=== PATIENT | male | born 1960 | race Caucasian/White ===

== ENCOUNTER 2021-07-10 13:33 | Emergency (ER) | payer BC, SELFPAY ==
[2021-07-10 14:02] VITALS: BP 146/72; PULSE 82; RESP 18; TEMP 36.5; O2SAT 98
--- NOTE | 2021-07-10 14:09 | ED.GENADULT ---
HPI - General Adult General Chief complaint: Wound/Laceration Stated complaint: Foreign Object Rt Pinky Finger Time Seen by Provider: 07/10/21 14:09 Source: patient, RN notes reviewed and old records reviewed Mode of arrival: ambulatory Limitations: no limitations History of Present Illness HPI narrative: 60 year old male who presents to [facility] care with complaints of getting a splinter into the proximal larkin aspect of hie right 5th finger 2 months ago when he moved a large 2X4 at his home. Patient reports he has developed some tenderness to the skin in that area over the last week and was wanting to try to get it removed. He states his tetanus shot has been within the last 5 years. Denies any fevers chills or sweats. Denies any tingling or numbness to his right fifth finger with no acute redness, drainage or acute swelling of tissue area. complaint: foreign body right 5th finger Onset (ago): month(s) (2) Location: right and upper extremity (right plamer 5th finger) Related Data Allergies Allergy/AdvReac Type Severity Reaction Status Date / Time No Known Allergies Allergy Verified 07/10/21 14:10 Review of Systems Review of Systems: CONSTITUTIONAL: Denies fever, chills, or sweats. EYES: Denies visual changes, redness, or discharge. ENT: Denies rhinorrhea, congestion, sore throat, or otalgia. CARDIOVASCULAR: Denies chest pain, palpitations, or edema. RESPIRATORY: Denies cough or dyspnea. GASTROINTESTINAL: Denies abdominal pain, nausea, vomiting, or diarrhea. GENITOURINARY: Denies dysuria or hematuria. SKIN: Denies rash or itching.positive for foreign body to right proximal larkin aspect of right 5th finger MUSCULOSKELETAL: positive for intermittent thoracic back pain, joint pain, or myalgia. NEUROLOGIC: Denies headache, numbness, or weakness. PSYCHIATRIC: Denies anxiety or depression. All systems reviewed & are unremarkable except as noted in HPI and below PMFSH Past Medical History Medical History (Updated 07/10/21 @ 15:58 by Karla Mehta NP) Back pain, thoracic Surgical History Surgical History (Updated 07/10/21 @ 15:51 by Karla Mehta NP) H/O left knee surgery H/O shoulder surgery bilateral rotator cuff Social History Social History (Updated 07/10/21 @ 15:48 by MARCELO Zuniga Smoking status: Never smoker Alcohol intake: former Alcohol use details: no alcohol for 16 years Substance use: never Occupation/Education: retired Gender identity (if verbalized by the patient): Male Comments At time of signature, agree with nursing past medical, surgical, social and family history. There is no relevant family history pertinent to the presenting complaint Exam Narrative: GENERAL: Well-appearing, well-nourished, and in no acute distress. HEAD: Normocephalic, atraumatic. EYES: PERRLA and EOMI. ENT: Nares clear, no rhinorrhea or epistaxis. Mucous membranes moist.TM's normal with good light reflex, throat pink with no lesions or exudates, no tonsil enlargement. NECK: Supple. no lymphadenopathy CHEST: Clear to auscultation. No respiratory distress.SAO2 98% on room air HEART: Regular rate and rhythm. No murmur heard. Normal peripheral pulses. ABDOMEN: Soft, nontender, nondistended, normal active bowel sounds. EXTREMITIES: Normal range of motion. No edema. SKIN: Warm, dry, swollen tender tissue to larkin aspect of right 5th finger with palpable firm moveable foreign body, no redness of area noted. NEURO: No focal deficits. Alert and oriented x3. Course Course Level of Care: Express Care Visit Vital Signs Vital signs: Vital Signs Temperature 36.5 C 07/10/21 14:02 Pulse Rate 82 07/10/21 14:02 Respiratory Rate 18 07/10/21 14:02 Blood Pressure 146/72 H 07/10/21 14:02 Pulse Oximetry 98 07/10/21 14:02 Temperature 36.5 C 07/10/21 14:02 Pulse Rate 82 07/10/21 14:02 Respiratory Rate 18 07/10/21 14:02 Blood Pressure 146/72 H 07/10/21 14:02 Pulse Oximetry
== END 2021-07-10 15:33 | disposition home or self-care (01) ==
PROVIDERS: Emergency Provider Registered Nurse; PCP Family Medicine
DX: S61.246A Puncture wound with foreign body of right little finger without damage to nail, initial encounter (principal); W45.8XXA Other foreign body or object entering through skin, initial encounter
CPT/HCPCS: 10120; 99203; G0463

== ENCOUNTER 2021-10-11 11:05 | Outpatient (CLI) | payer BC, SELFPAY ==
[2021-10-11 19:18] LABS: Basophils Percent Auto 0.8 % (0.2-1.2); Eosinophils Absolute Auto 0.1 K/mm3 (0-0.3); Eosinophils Percent Auto 2.2 % (0-4.4); Hematocrit 54.3 % (42.0-52.0); Hemoglobin 17.7 g/dL (14.0-18.0); Lymphocytes Absolute Auto 1.71 K/mm3 (0.9-3.2); Lymphocytes Percent Auto 34.1 % (18.3-44.2); Mean Corpuscular HGB Conc 32.6 g/dl (32-36); Mean Corpuscular Hemoglobin 32.1 pg (26-34); Mean Corpuscular Volume 98.4 fl (80-100); Mean Platelet Volume 12.9 fl (7.4-10.4); Monocytes Absolute Auto 0.6 K/mm3 (0.1-0.6); Neutrophils Absolute Auto 2.6 K/mm3 (1.3-6.7); Neutrophils Percent Auto 51.9 % (45.5-73.1); Platelet Count Result 181 k/mm3 (150-375); Red Blood Count 5.52 M/mm3 (4.6-6.20); Red Cell Distribution Width 12.4 % (11.5-14.5)
[2021-10-11 19:34] LABS: Alanine Aminotransferase 14 U/L (4-50); Albumin Level 4.7 g/dL (3.5-5.1); Alkaline Phosphatase 78 U/L (38-126); Anion Gap 7 mmol/L (8-16); Aspartate Amino Transferase 30 U/L (17-59); Bilirubin,Total 0.5 mg/dL (0.2-1.3); Blood Urea Nitrogen 17 mg/dL (9-20); Calcium 9.7 mg/dL (8.4-10.2); Carbon Dioxide 28 mmol/L (22-30); Chloride 105 mmol/L (98-107); Cholesterol 200 mg/dL (0-200); Estimated Glomerular Filt Rate > 60; Glucose 96 mg/dL (65-110); HDL Direct 57 mg/dL; Potassium 4.5 mmol/L (3.4-5.0); Sodium 140 mmol/L (137-145); Triglycerides 101 mg/dL (<150)
[2021-10-11 19:45] LABS: LDL Cholesterol Direct 103 mg/dL
[2021-10-11 20:05] LABS: Prostate Specific Antigen 0.4 ng/mL (< OR = 4.0)
== END 2021-10-11 11:06 | disposition home or self-care (01) ==
LOC: ANHBWCLAB 11:07
PROVIDERS: PCP Family Medicine; Visit Provider Family Medicine
DX: Z00.00 Encounter for general adult medical examination without abnormal findings (principal); N52.9 Male erectile dysfunction, unspecified; F41.9 Anxiety disorder, unspecified
CPT/HCPCS: 36415; 80053; 80061; 84153; 85025; G0103

== ENCOUNTER 2021-12-30 09:49 | Outpatient (CLI) | payer BC, SELFPAY | END 2021-12-30 09:50 | disposition home or self-care (01) | LOC: ANHAUDIO 09:50 | PROVIDERS: PCP Family Medicine; Visit Provider Otolaryngology | DX: H90.3 Sensorineural hearing loss, bilateral (principal) | CPT/HCPCS: 92557; 92567 ==

== ENCOUNTER 2022-08-30 13:00 | Outpatient (RCR) | payer BC, SELFPAY | END 2022-08-30 23:59 | disposition home or self-care (01) | LOC: ANHAUDIO 13:00 | PROVIDERS: PCP Family Medicine; Visit Provider Family Medicine | DX: Z46.1 Encounter for fitting and adjustment of hearing aid (principal) | CPT/HCPCS: 92593; 99199 ==